=== PATIENT | female | born 1975 | race Hispanic/Latino ===

== ENCOUNTER 2017-02-17 02:07 | Emergency (ER) | payer MEDICARE, MEDICAID ==
[2017-02-17 02:07] VITALS: BMI 24.6
[2017-02-17 02:23] VITALS: BP 135/75; PULSE 119; RESP 18; TEMP 98; O2SAT 100
== END 2017-02-17 02:35 | disposition left against medical advice (07) ==
LOC: H.ER 02:07
DX: Z02.89 Encounter for other administrative examinations (principal)